=== PATIENT | female | born 1980 | race Caucasian/White ===

== ENCOUNTER → 2017-06-08 | Outpatient (CLI) | payer BC ==
--- NOTE | 2017-06-08 10:48 | XR ---
EXAMINATION TYPE: XR chest 2V DATE OF EXAM: 06/08/2017 COMPARISON: NONE HISTORY: Abnormal physical exam, rattling breath sounds. TECHNIQUE: Frontal and lateral views of the chest are obtained. FINDINGS: There is mild to moderate apical scarring bilaterally. There is no focal air space opacity, pleural effusion, or pneumothorax seen. The cardiac silhouette size is within normal limits. The osseous structures are intact. IMPRESSION: No suspicious acute cardiopulmonary process.
[2017-06-08 11:01] LABS: CH 31.5; CHCM 34.4; HCT 38.9 % (34.0-46.0); HDW 2.57; HGB 13.8 gm/dL (11.4-16.0); MCH 32.6 pg (25.0-35.0); MCHC 35.5 g/dL (31.0-37.0); Mean Platelet Volume 6.6; RBC 4.23 m/uL (3.80-5.40); RDW 12.7 % (11.5-15.5); WBC 5.5 k/uL (3.8-10.6)
[2017-06-08 11:29] LABS: ALT 20 U/L (9-52); AST 21 U/L (14-36); Alkaline Phosphatase 50 U/L (38-126); Anion Gap 9 mmol/L; Blood Urea Nitrogen 14 mg/dL (7-17); Calcium 9.1 mg/dL (8.4-10.2); Carbon Dioxide 26 mmol/L (22-30); Chloride 106 mmol/L (98-107); Glucose 86 mg/dL (74-99); Non-African American GFR(MDRD) >60 (>60 ml/min/1.73 sqM); Potassium 4.2 mmol/L (3.5-5.1); Sodium 141 mmol/L (137-145); Total Bilirubin 0.6 mg/dL (0.2-1.3); Total Protein 7.4 g/dL (6.3-8.2)
== END ==
LOC: RADXRMAIN 10:19
PROVIDERS: ATTEND Nurse Practitioner Women's Health
DX: R91.8 Other nonspecific abnormal finding of lung field (principal); R53.83 Other fatigue; R00.2 Palpitations
CPT/HCPCS: 71020; 80053; 84443; 85027

== ENCOUNTER → 2017-07-30 | Outpatient (CLI) | payer BC | END | disposition home or self-care (01) | LOC: LABWHC1 07:42 | PROVIDERS: ATTEND Obstetrics & Gynecology | DX: N92.6 Irregular menstruation, unspecified (principal) | CPT/HCPCS: 36415; 84144 ==

== ENCOUNTER → 2017-10-19 | Outpatient (CLI) | payer BC | END | disposition home or self-care (01) | LOC: LABWHC1 17:00 | PROVIDERS: ATTEND Obstetrics & Gynecology Reproductive Endocrinology | DX: N97.0 Female infertility associated with anovulation (principal) | CPT/HCPCS: 36415; 84144 ==

== ENCOUNTER → 2018-05-29 | Outpatient (CLI) | payer BC ==
[2018-05-29 17:32] LABS: Basophils % (A) 1 %; Eosinophils # (A) 0.1 k/uL (0-0.7); Eosinophils % (A) 3 %; HCT 38.7 % (34.0-46.0); HGB 13.1 gm/dL (11.4-16.0); Lymphocytes # (A) 1.5 k/uL (1.0-4.8); Lymphocytes % (A) 31 %; MCHC 33.9 g/dL (31.0-37.0); MCV 91.6 fL (80.0-100.0); Mean Platelet Volume 6.3; Monocytes # (A) 0.2 k/uL (0-1.0); Monocytes % (A) 4 %; Neutrophils # (A) 2.9 k/uL (1.3-7.7); Neutrophils % (A) 59 %; Platelet Count 227 k/uL (150-450); RBC 4.22 m/uL (3.80-5.40); RDW 13.1 % (11.5-15.5); WBC 4.8 k/uL (3.8-10.6)
[2018-05-29 18:02] LABS: Anion Gap 7 mmol/L; Blood Urea Nitrogen 14 mg/dL (7-17); Calcium 9.5 mg/dL (8.4-10.2); Carbon Dioxide 27 mmol/L (22-30); Chloride 104 mmol/L (98-107); Glucose 112 mg/dL (74-99); Magnesium 2.2 mg/dL (1.6-2.3); Potassium 3.9 mmol/L (3.5-5.1); Sodium 138 mmol/L (137-145)
[2018-05-29 18:18] LABS: T4, Free (Free Thyroxine) 1.12 ng/dL (0.78-2.19)
== END | disposition home or self-care (01) ==
LOC: LABWHC1 16:42
PROVIDERS: ATTEND Family Medicine
DX: R30.0 Dysuria (principal)
CPT/HCPCS: 36415; 80048; 83735; 84439; 84443; 85025

== ENCOUNTER → 2025-04-17 | Outpatient (CLI) | payer BC ==
--- NOTE | 2025-04-17 18:39 | MM ---
Reason for Exam: Screening (asymptomatic). Baseline mammogram. Patient History: Menarche at age 12. Last menstrual period: 08/29/2024 Risk Values: Halie 5 year model risk: 0.6%. NCI Lifetime model risk: 7.0%. Prior Study Comparison: Patient's first Mammogram. No prior studies available for comparison. Tissue Density: The breasts are extremely dense, which lowers the sensitivity of mammography. Findings: Analyzed By CAD. No significant mass, suspicious microcalcification, or other discrete abnormality seen. Overall Assessment: Negative, BI-RAD 1 Management: Screening Mammogram of both breasts in 1 year. Given the patient's extremely dense breast tissue. Consideration can be given to supplementary screening with breast ultrasound. Patient should continue monthly self-breast exams. A clinical breast exam by your physician is recommended on an annual basis. This exam should not preclude additional follow-up of suspicious palpable abnormalities. Note on Halie scores and lifetime risk: 1. A Halie score greater than 3% is considered moderate risk. If this is the case, consider specialist referral to assess eligibility for a risk reducing agent. 2. If overall lifetime risk for the development of breast cancer is 20% or higher, the patient may qualify for future screening with alternating mammogram and breast MRI. [facility], , 04/17/2025 6:37 PM. Electronically signed and approved by: Colleen De Los Santos M.D. Radiologist
== END | disposition home or self-care (01) ==
LOC: RADMAMWWP 14:02
PROVIDERS: ATTEND Family Medicine
DX: Z12.31 Encounter for screening mammogram for malignant neoplasm of breast (principal); R92.343 Mammographic extreme density, bilateral breasts
CPT/HCPCS: 77063; 77067